=== PATIENT | male | born 1980 | race Caucasian/White ===

== ENCOUNTER 2017-03-30 20:37 | Emergency (ER) | payer SELFPAY ==
[~2017-03-30 20:37] MED LIST: ADVIL LIQUI-GE200 MG PO; BACTRIM DS 8001 TA1 PO; CEPHALEXIN500 M2 PO; CLINDAMYCIN300 MG PO; DAYQUIL COLD/FL1 SGL PO; FLEXERIL 1010 MG/TAB PO; NITROSTAT0.4 M1; NO HOME MEDICATIONS; NORCO 325 MG-51 TA1 PO; NORCO 325 MG-51 TAB PO; OXYCONTIN15 MG PO; PERCOCET 325 MG1 TA5 PO; SKELAXIN 800MG800 MG PO; ULTRAM50 M1 PO
[2017-03-30 22:11] VITALS: BP 130/83
== END 2017-03-30 22:11 | disposition home or self-care (01) ==
LOC: ED 20:37
DX: T20.30XA Burn of third degree of head, face, and neck, unspecified site, initial encounter (principal); T21.11XA Burn of first degree of chest wall, initial encounter; X12.XXXA Contact with other hot fluids, initial encounter; Y93.G3 Activity, cooking and baking; Y92.000 Kitchen of unspecified non-institutional (private) residence as the place of occurrence of the external cause

== ENCOUNTER 2017-06-01 16:58 | Emergency (ER) | payer SELFPAY ==
[~2017-06-01] VITALS: Ht 170.2 cm; Wt 90.9 kg
[2017-06-01] MEDS ORDERED: NITROSTAT0.4 M1 SL (22:15)
[2017-06-01 22:51] VITALS: BP 110/58
== END 2017-06-01 22:51 | disposition home or self-care (01) ==
LOC: ED 16:58
DX: I20.9 Angina pectoris, unspecified (principal); R07.9 Chest pain, unspecified; F17.210 Nicotine dependence, cigarettes, uncomplicated; R06.02 Shortness of breath; R42 Dizziness and giddiness; R00.2 Palpitations; R61 Generalized hyperhidrosis; T39.016A Underdosing of aspirin, initial encounter; T46.3X6A Underdosing of coronary vasodilators, initial encounter; Z82.49 Family history of ischemic heart disease and other diseases of the circulatory system
CPT/HCPCS: J7030

== ENCOUNTER 2018-03-31 02:45 | Emergency (ER) | payer SELFPAY ==
[~2018-03-31] VITALS: Ht 170.2 cm; Wt 96.8 kg
[~2018-03-31 02:45] MED LIST changes: +NITROSTAT0.4 M1 SL
[2018-03-31] MEDS ORDERED: GOOD NEIGHBOR200 M1 PO (03:00)
[2018-03-31] MEDS ORDERED: AUGMENTIN 875-1 EAC1 PO (03:27)
[2018-03-31] MEDS ORDERED: NORCO 325 MG-51 TA1 PO (03:27)
[2018-03-31 03:48] VITALS: BP 128/98
== END 2018-03-31 03:48 | disposition home or self-care (01) ==
LOC: ED 02:45
DX: K08.89 Other specified disorders of teeth and supporting structures (principal); R22.0 Localized swelling, mass and lump, head; F17.210 Nicotine dependence, cigarettes, uncomplicated
CPT/HCPCS: J1885